=== PATIENT | female | born 1975 | race Caucasian/White ===

== ENCOUNTER 2019-06-06 23:50 | Emergency (ER) | payer SELFPAY ==
[2019-06-07] MEDS ORDERED: Ibuprofen 800 MG TAB ONE (00:14)
[2019-06-07] MEDS ORDERED: Acetaminophen 500 MG TAB ONE (00:14)
[2019-06-07 00:40] LABS: Amphetamine Not Detected (NotDetected); Barbiturates Screen Not Detected (NotDetected); Benzodiazepine Screen Not Detected (NotDetected); Cocaine Metabolite Screen Not Detected (NotDetected); Medtox Control Line Valid? VALID (VALID); Methadone Not Detected (NotDetected); Methamphetamine Not Detected (NotDetected); Opiate Screen Not Detected (NotDetected); Oxycodone Screen Not Detected (NotDetected); Phencyclidine (PCP) Not Detected (NotDetected); THC/Cannabinoid Screen Not Detected (NotDetected); Tricyclic Screen Not Detected (NotDetected)
== END 2019-06-07 00:55 | disposition home or self-care (01) ==
LOC: MADERS 23:50
DX: S39.012A Strain of muscle, fascia and tendon of lower back, initial encounter (principal); R82.5 Elevated urine levels of drugs, medicaments and biological substances; F17.210 Nicotine dependence, cigarettes, uncomplicated; W18.30XA Fall on same level, unspecified, initial encounter
CPT/HCPCS: 80306; 99283

== ENCOUNTER 2023-08-17 12:30 | Emergency (ER) | payer SELFPAY | END 2023-08-17 13:20 | disposition home or self-care (01) | LOC: MADERS 12:30 | DX: N93.9 Abnormal uterine and vaginal bleeding, unspecified (principal); R05.9 Cough, unspecified; R09.81 Nasal congestion; Z87.891 Personal history of nicotine dependence | CPT/HCPCS: 99283 ==